=== PATIENT | male | born 1985 ===

== ENCOUNTER 2024-01-17 09:49 | Emergency (ER) | payer OTHER, SELFPAY ==
[2024-01-17 09:54] VITALS: BP 138/80; PULSE 62; RESP 16; TEMP 36.9; O2SAT 100; BMI 23.7
--- NOTE | 2024-01-17 10:00 | PC.PHAR ---
pt states take no rx or otc medications
--- NOTE | 2024-01-17 10:06 | ED_ITS ---
HPI - Wound/Laceration General: Chief Complaint: Wound/Laceration Stated Complaint: left hand, middle finger lac Time Seen by Provider: 01/17/24 09:51 History of Present Illness: Patient was moving a toolbox and got his finger caught in a hole and as he pulled out it ripped through his glove and cut his finger. He has a laceration on the dorsal side mid finger of his third digit of his left hand. This has a flap. The skin is very thin at the end of the flap. He says initially had some numbness in his finger but that has improved. Currently is neurovascularly intact and bleeding is controlled. He does not know when his last tetanus was. No other injuries. Review of Systems Narrative: Constitutional symptoms: Negative except as documented in HPI. Skin symptoms: Negative except as documented in HPI. Eye symptoms: Negative except as documented in HPI. ENMT symptoms: Negative except as documented in HPI. Respiratory symptoms: Negative except as documented in HPI. Cardiovascular symptoms: Negative except as documented in HPI. Gastrointestinal symptoms: Negative except as documented in HPI. Genitourinary symptoms: Negative except as documented in HPI. Musculoskeletal symptoms: Negative except as documented in HPI. Neurologic symptoms: Negative except as documented in HPI. Psychiatric symptoms: Negative except as documented in HPI. Endocrine symptoms: Negative except as documented in HPI. Physical Exam Narrative: EXAM NARRATIVE: General: Alert, no acute distress. Skin: warm and dry, flap laceration about 1 cm mid third digit of the left hand dorsally. Patient still has a little bit of numbness he says on the top of his finger. Otherwise he is neurovascularly intact. Full range of motion. Head: Normocephalic Neck: Trachea midline Eye: Extraocular movements are intact. Ears, nose, mouth and throat: Oral mucosa moist Respiratory: Respirations are non-labored Musculoskeletal: Normal ROM Neurological: Alert and oriented to person, place, time, and situation, No focal neurological deficit observed. Psychiatric: Cooperative, appropriate mood & affect. Course Vital Signs: Vital signs: Vital Signs Temperature 98.4 F 01/17/24 09:54 Pulse Rate 62 01/17/24 09:54 Respiratory Rate 16 01/17/24 09:54 Blood Pressure 138/80 01/17/24 09:54 Pulse Oximetry 100 01/17/24 09:54 Oxygen Delivery Me thod Room Air 01/17/24 09:54 MDM - Wound/Laceration Medical Decision Making This flap type laceration does not seem amenable to sutures. We will use skin glue and update the patient's tetanus. Laceration repair procedure: Time: 1050 am Confirmed patient, procedure, side, and site. Time out performed prior to procedure. Verbal consent was obtained by patient and/or responsible democrat. Indication: Laceration Location: Left third digit Length: 2 cm Description: Flap type laceration 1 cm down each side Anesthesia: Was not required Area prepared by sterile field with Betadine. Dermabond was applied to the laceration with good closure Post procedure examination: Circulation, motor, sensory intact. Patient tolerated the procedure well. No complications, bleeding. Total time: 5 min. Pt advised to keep the area clean and dry, wash twice per day with antibacterial soap and water. No radiology studies performed this visit Other Data Assessment and plan: - Dermabond to laceration with good closure - Life-saving tetanus was administered - Discharged home - Discussed plan with patient. Answered any questions. - Evaluation and treatment of this problem were appropriate in the emergency setting. Discharge Plan Discharge Patient Disposition: Home Clinical Impression: Laceration Condition: Stable Prescriptions: No Action No Known Home Medications Discharge Orders: Discharge ED (Routine); Ordered 01/17/24 Ordered By: Elicia Chaudhary Referrals: Epifanio Kevin MD [Primary Care Provider] - (You have been screened and evaluated and felt safe for discharge. Health conditions do change or evolve sometimes and as such it is important that you follow up with your Primary Doctor to be re checked, 3-5 days is a general good time frame for follow up. You are always welcome to return to the ED for re assessment if your symptoms are worsening or you have new concerns) Discharge Diet: Usual diet Discharge Activity: Resume usual activity Patient Instructions: Skin Adhesive Care (ED) Coding Level of Care Code ED Planning Division Superintendent for Carli Parker
[2024-01-17] MEDS: tetanus-diphtheria tox (adult) 0.5 mL SDV IM (10:18)
== END 2024-01-17 10:58 | disposition home or self-care (01) ==
PROVIDERS: Emergency Provider Emergency Medicine; PCP Family Medicine
DX: S61.213A Laceration without foreign body of left middle finger without damage to nail, initial encounter (principal); W26.8XXA Contact with other sharp object(s), not elsewhere classified, initial encounter; Z23 Encounter for immunization
CPT/HCPCS: 90471; 90714; 99283